=== PATIENT | male | born 1980 | race Caucasian/White ===

== ENCOUNTER 2022-07-20 11:56 | Outpatient (REF) | payer OTHER, SELFPAY ==
[2022-07-20 13:00] LABS: Estimated Average Glucose 117 mg/dL; Hemoglobin A1c % 5.7 %
[2022-07-20 13:15] LABS: Cholesterol 195 mg/dL; HDL Cholesterol 37 mg/dL; LDL Cholesterol Calculated 128 mg/dl; Triglycerides 151 mg/dL
== END 2022-07-20 11:57 | disposition home or self-care (01) ==
LOC: HO.LAB 11:56
PROVIDERS: PCP Internal Medicine; Visit Provider Registered Nurse
DX: Z79.899 Other long term (current) drug therapy (principal)
CPT/HCPCS: 36415; 80061; 83036